=== PATIENT | female | born 1945 | race Native Hawaiian/Other Pacific Islander ===

== ENCOUNTER 2017-04-03 07:10 | Day surgery (SDC) | payer OTHER ==
[~2017-04-03] VITALS: Ht 158.8 cm; Wt 90.0 kg
[~2017-04-03 07:10] MED LIST: CeFAZolin 1 GM/DEXTROSE 50 ML IV ONE; LORazepam 2 MG/ML VIAL IVP PRN; SODIUM CHLORIDE 0.9% 1,000 ML IV ONE
[2017-04-03] MEDS ORDERED: SODIUM CHLORIDE 0.9% 1,000 ML IV ONE (08:07)
[2017-04-03] MEDS ORDERED: CeFAZolin 1 GM/DEXTROSE 50 ML IV ONE (08:07)
[2017-04-03] MEDS ORDERED: LISI-662 PO (08:31)
[2017-04-03 08:32] LABS: BASOPHILS % (AUTO) 0.2 % (0.0-2.0); EOSINOPHILS % (AUTO) 2.6 % (1.0-6.0); HEMATOCRIT 36.4 % (36-46); HEMOGLOBIN 11.9 g/dL (12.0-16.0); LYMPHOCYTES # (AUTO) 0.9 K/uL (1.0-4.8); LYMPHOCYTES % (AUTO) 10.2 % (22.0-44.0); MEAN CORPUSCULAR HGB CONC 32.6 G/dL (31.0-37.0); MEAN CORPUSCULAR VOLUME 77 fL (80-100); MONOCYTES # (AUTO) 0.5 K/uL (0.1-1.0); MONOCYTES % (AUTO) 6.1 % (2.0-9.0); NEUTROPHILS % (AUTO) 80.9 % (40.0-70.0); PLATELET COUNT (AUTO) 225 K/uL (150-450); RED BLOOD CELL COUNT(AUTO) 4.75 MIL/uL (4.00-5.20); RED CELL DISTRIBUTION WIDTH 21.5 % (11.5-14.5); WHITE BLOOD COUNT (AUTO) 8.7 K/uL (4.5-11.0)
[2017-04-03 08:41] LABS: ALBUMIN 3.1 g/dL (3.4-5.0); BILIRUBIN,TOTAL 0.8 mg/dL (0.1-1.0); CALCIUM, TOTAL 9.3 mg/dL (8.8-10.5); CREATININE 0.94 mg/dL (0.60-1.30); POTASSIUM 4.2 mmol/L (3.5-5.1); TOTAL PROTEIN, SERUM 7.1 g/dL (6.4-8.2)
[2017-04-03 09:16] LABS: RBC MORPHOLOGY COMMENT ABNORMAL RBC MORPH
[2017-04-03] MEDS ORDERED: IODIXANOL 320 MG/ML 50 ML VIAL ONE ×2 (10:04→11:18)
[2017-04-03] MEDS ORDERED: HEPARIN SODIUM 1000 UNITS/NS 500 ML ONE (10:05)
[2017-04-03] MEDS ORDERED: SODIUM BICARBONATE 50 MEQ/50 ML VIAL ONE (10:05)
[2017-04-03] MEDS ORDERED: LIDOCAINE HCL/PF 1% 30 ML VIAL ONE (10:05)
[2017-04-03] MEDS ORDERED: FentaNYL CITRATE-PF 100 MCG/2 ML VIAL ONE ×2 (10:06→11:57)
[2017-04-03] MEDS ORDERED: MIDAZOLAM HCL 2 MG/2 ML VIAL ONE ×2 (10:06→11:57)
[2017-04-03 10:23] VITALS: BP 140/63
[2017-04-03] MEDS ORDERED: IODIXANOL 320 MG/ML 100 ML VIAL ONE (10:23)
[2017-04-03] MEDS ORDERED: FentaNYL CITRATE-PF 100 MCG/2 ML VIAL IVP ONE ×3 (11:00→11:45)
[2017-04-03] MEDS ORDERED: MIDAZOLAM HCL 2 MG/2 ML VIAL IVP ONE ×3 (11:00→11:45)
[2017-04-03] MEDS ORDERED: IODIXANOL 320 MG/ML 100 ML VIAL IARTER ONE (11:00)
[2017-04-03] MEDS ORDERED: LIDOCAINE 1% 30 ML/SOD BICARB 8.4% 4 ML SQ ONE (11:00)
[2017-04-03] MEDS ORDERED: IODIXANOL 320 MG/ML 50 ML VIAL IARTER ONE ×2 (11:45)
[2017-04-03 12:13] VITALS: BP 149/60
[2017-04-03] MEDS ORDERED: HYDROmorphone 2 MG/ML SYRINGE IVP PRN (12:15)
[2017-04-03] MEDS ORDERED: PROMETHAZINE HCL 25 MG TABLET PO PRN (12:15)
[2017-04-03] MEDS ORDERED: ONDANSETRON HCL 4 MG/2 ML VIAL IVP PRN (12:15)
[2017-04-03] MEDS ORDERED: SODIUM CHLORIDE 0.9% 1,000 ML IV SCH (12:30)
[2017-04-03] MEDS ORDERED: ONDANSETRON HCL 4 MG/2 ML VIAL ONE (13:12)
== END 2017-04-03 16:40 | disposition home or self-care (01) ==
LOC: SDS 07:10
PROVIDERS: ATTEND Radiology Diagnostic Radiology
DX: C16.9 Malignant neoplasm of stomach, unspecified (principal); D50.0 Iron deficiency anemia secondary to blood loss (chronic); K25.4 Chronic or unspecified gastric ulcer with hemorrhage; E11.9 Type 2 diabetes mellitus without complications; J45.909 Unspecified asthma, uncomplicated; F10.21 Alcohol dependence, in remission; Z98.890 Other specified postprocedural states; Z80.2 Family history of malignant neoplasm of other respiratory and intrathoracic organs
CPT/HCPCS: 36245; 36415; 37243; 75726; 75774; 76937; 80053; 85025; 86850; 86900; 86901; 86920; 93005; 99152; 99153; C1769; C1892; J0690; J1644; J2250; J2405; J3010; J3490 ×2; J7030; Q9967 ×2